=== PATIENT | female | born 2000 | race Caucasian/White ===

== ENCOUNTER 2023-06-06 03:04 | Emergency (ER) | payer BC ==
[~2023-06-06] VITALS: Ht 175.3 cm; Wt 107.5 kg
[2023-06-06 03:08] VITALS: BP 124/64; PULSE 87; RESP 17; TEMP 97.8; O2SAT 100
[2023-06-06 03:20] VITALS: BP 124/64; PULSE 87; RESP 17; TEMP 97.8; O2SAT 100
[2023-06-06] MEDS ORDERED: AMOX500C25 PO (03:23)
== END 2023-06-06 03:20 | disposition home or self-care (01) ==
LOC: MED 03:04
DX: O99.511 Diseases of the respiratory system complicating pregnancy, first trimester (principal); J02.9 Acute pharyngitis, unspecified; Z3A.12 12 weeks gestation of pregnancy; Z79.2 Long term (current) use of antibiotics
CPT/HCPCS: 99283